=== PATIENT | female | born 1945 | race Caucasian/White ===

== ENCOUNTER 2019-04-12 08:10 | Emergency (ER) | payer MEDICARE, OTHER ==
[2019-04-12 08:22] VITALS: BP 188/80
--- NOTE | 2019-04-12 08:37 | UC ---
Skin Complaint HPI - HPI Summary HPI Summary: Patient is a 73-year-old female presenting with possible tick bite to left upper back that she noticed this morning. States that tick fell when she scratched at it that she believes that is still inside. States the spot has been causing her itching and tenderness over the past few days but she couldn't see it so she left it there. Also notes redness around the bite. Denies fever and chills. Denies drainage and bleeding from the area. Denies nausea or vomiting. 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 - History of Current Complaint Chief Complaint: UCSkin Stated Complaint: TICK BITE Hx Obtained From: Patient Hx Last Menstrual Period: N/A Onset/Duration: Gradual Onset, Lasting Days Pain Intensity: 2 - Allergy/Home Medications Allergies/Adverse Reactions: Allergies Allergy/AdvReac Type Severity Reaction Status Date / Time codeine Allergy resp arrest Verified 04/12/19 08:24 nabumetone [From Relafen] Allergy unk Verified 04/12/19 08:24 PMH/Surg Hx/FS Hx/Imm Hx Cardiovascular History: Hypertension - Surgical History Surgical History: Yes Surgery Procedure, Year, and Place: rotator cuff - Family History Known Family History: Positive: Unknown - Social History Occupation: Retired Lives: Alone Alcohol Use: None Substance Use Type: None Smoking Status (MU): Never Smoked Tobacco Review of Systems All Other Systems Reviewed And Are Negative: No Constitutional: Positive: Negative. Negative: Fever, Chills Skin: Positive: Other - Tick bite of upper left back Respiratory: Positive: Negative Cardiovascular: Positive: Negative Gastrointestinal: Positive: Negative Musculoskeletal: Positive: Negative Neurological: Positive: Negative Physical Exam Triage Information Reviewed: Yes Appearance: Well-Appearing, No Pain Distress, Well-Nourished Vital Signs: Initial Vital Signs Temp 97.9 F 04/12/19 08:19 Pulse 86 04/12/19 08:19 Resp 16 04/12/19 08:19 BP 188/80 04/12/19 08:19 Pulse Ox 96 04/12/19 08:19 Vital Signs Reviewed: Yes Eyes: Positive: Conjunctiva Clear Neck: Positive: Supple Respiratory: Positive: No respiratory distress Neurological: Positive: Alert Psychological: Positive: Age Appropriate Behavior Skin: Positive: Other - Tick bite noted on left upper back with head still intact. Area surrounded by erythema and warmth indicative of cellulitis. Induration noted. No drainage or fluctuance. Course/Dx - Course Course Of Treatment: The patient received 200 mg of prophylactic dose of doxycycline here at urgent care. I then prescribed a course of doxycycline for treatment of her infected tick bite. I educated the patient on cellulitis and instructed to return or go to the ED if anything worsens. I educated patient on tick bites and Lyme disease and instructed her to follow up with PCP if needed. Patient voiced understanding and agreed with the treatment plan. - Diagnoses Provider Diagnosis: Elevated blood pressure reading with diagnosis of hypertension, Infected tick bite of upper back excluding scapular region Discharge ED - Sign-Out/Discharge Documenting (check all that apply): Patient Departure All imaging exams completed and their final reports reviewed: No Studies - Discharge Plan Condition: Stable Disposition: HOME Prescriptions: DOXYcycline CAP(*) [DOXYcycline 100MG CAP(*)] 100 mg PO BID #14 cap Patient Education Materials: Lyme Disease (ED), Tick Bite (ED) Referrals: Mercy Friedman MD [Primary Care Provider] - If Needed Additional Instructions: As discussed, you received the one-time dose of Doxycycline to prevent Lyme Disease here at the urgent care. Take the prescription for doxycycline to treat your skin infection. Tka eht efirst dose of the prescription tonight. It is recommended that you take this with food to avoid stomach upset. You may apply warm compresses to the area 2-3 times daily. Follow up with your PCP if you experience a rash where you were the tick bit you within the next month. Return or go to the emergency room if you experience fever, nausea and vomiting , or increasing redness, warmth, or drainage from the area. - Billing Disposition and Condition Condition: STABLE Disposition: Home - Attestation Statements Provider Attestation: I was available for consult. This patient was seen by the [facility]. The patient was not presented to, seen by, or examined by me. -Quentin
[2019-04-12] MEDS ORDERED: DOXYcycline CAP(*) 100 MG PO ONE (08:50)
== END 2019-04-12 09:03 | disposition home or self-care (01) ==
LOC: UCEAST 08:10
DX: S20.462A Insect bite (nonvenomous) of left back wall of thorax, initial encounter (principal); L08.9 Local infection of the skin and subcutaneous tissue, unspecified; I10 Essential (primary) hypertension; Z88.5 Allergy status to narcotic agent; Z88.6 Allergy status to analgesic agent; W57.XXXA Bitten or stung by nonvenomous insect and other nonvenomous arthropods, initial encounter; Y92.9 Unspecified place or not applicable
CPT/HCPCS: 99212; A9270-GY; G0463

== ENCOUNTER 2023-02-28 20:17 | Inpatient (IN) ==
[2023-02-28] MEDS ORDERED: Ondansetron ODT 4 mg TAB 4 MG TAB PO ONE (20:55)
[2023-02-28] MEDS ORDERED: Morphine 4 MG/ML VIAL (1 ml) IV ONE ×2 (21:39→22:42)
[2023-02-28] MEDS ORDERED: Morphine 4 MG/ML VIAL (1 ml) ONE (22:39)
[2023-02-28] MEDS ORDERED: Pantoprazole 80 mg in NS BAG 80 MG/250 ML BAG IV ONE (23:33)
[2023-02-28] MEDS ORDERED: Pantoprazole VIAL 40 MG VIAL IV ONE (23:33)
[2023-03-01] MEDS ORDERED: Prochlorperazine 5 mg/ml 2 ml VIAL (10 mg) IV ONE (00:05)
[2023-03-01] MEDS ORDERED: Lactated Ringers 1000 ml BAG 1,000 ML IV ONE ×2 (00:55→10:01)
[2023-03-01 00:58] LABS: Hematocrit 35.8 % (35-45); Hemoglobin 11.9 g/dL (11.5-14.3); Mean Corpuscular Hgb Conc 33.3 g/dL (31-36); Mean Corpuscular Volume 84.2 fL (80-97); Mean Platelet Volume 9.1 fL (7.5-11.2); Platelet Count 437 10^3/uL (150-450); Red Blood Count 4.25 10^6/uL (3.63-4.92); Red Cell Distribution Width 15.6 % (12-17); White Blood Count 29.4 10^3/uL (3.8-11.8)
[2023-03-01 01:09] LABS: ALT 13 U/L (7-52); AST 22 U/L (13-39); Albumin 3.6 g/dL (3.2-5.2); Albumin/Globulin Ratio 1.3 (1-3); Alkaline Phosphatase 101 U/L (35-149); Anion Gap 12 mmol/L (2-16); Blood Urea Nitrogen 22 mg/dL (6-24); C Reactive Protein 27.69 mg/L (<8.01); CO2 Carbon Dioxide 22 mmol/L (22-32); Calcium 8.5 mg/dL (8.6-10.3); Chloride 88 mmol/L (101-111); Creatinine, Serum 1.17 mg/dL (0.51-0.95); Globulin 2.7 g/dL (2-4); Glucose 213 mg/dL (70-100); Lipase < 10 U/L (11.0-82.0); Potassium 3.2 mmol/L (3.5-5.0); Sodium 122 mmol/L (135-145); Total Protein 6.3 g/dL (6.4-8.9); eGFR CKD-EPI 47.8 (>60)
[2023-03-01] MEDS ORDERED: Piperacillin/Tazobac 3.375 BAG 3.375 GM/100 ML BAG IV ONE (01:20)
[2023-03-01 01:46] LABS: ABS Lymphocytes 0.3 10^3/uL (1.0-4.8); ABS Monocytes 0.5 10^3/uL (0.0-0.9); ABS Neutrophils 28.5 10^3/uL (1.5-7.6); Lymphocyte % 1.2 %
[2023-03-01] MEDS ORDERED: Vancomycin 1,500 MG in NS 0.9% 250 ml 250 ML IVPB ONE (02:00)
[2023-03-01] MEDS ORDERED: NS 0.9% 1000 ml BAG 1,000 ML IV SCH (02:00)
[2023-03-01] MEDS ORDERED: Lactated Ringers SEPSIS* BAG 1,920 ML IV ONE (05:27)
[2023-03-01 05:32] LABS: Hematocrit 34.7 % (35-45); Hemoglobin 11.6 g/dL (11.5-14.3)
[2023-03-01 07:00] LABS: Urine Appearance Cloudy; Urine Bilirubin 1+ (Negative); Urine Blood Negative (Negative); Urine Color Amber; Urine Glucose Negative (Negative); Urine Ketones Trace (Negative); Urine Nitrite Negative (Negative); Urine Protein 2+(100 mg/dL) (Negative); Urine Specific Gravity 1.031 (1.002-1.030); Urine Urobilinogen Positive (Negative)
[2023-03-01 07:03] LABS: Urine Amorphous Crystals Present (Absent); Urine Bacteria 1+ (Absent); Urine Red Blood Cell Absent (Absent); Urine Squamous Epithelial Cell Present (Absent); Urine White Blood Cell 3+(>20/hpf) (Absent); Urine Yeast Present (Absent)
[2023-03-01] MEDS: KCL 10 MEQ/50 ML IVPREMIX 10 MEQ/50 ML BAG IV SCH ×3 (07:34→10:11)
[2023-03-01] MEDS ORDERED: Albuterol HFA INHALER 8 gm MDI INH PRN (09:18)
[2023-03-01 09:35] LABS: Calcium 7.6 mg/dL (8.6-10.3); Potassium 3.9 mmol/L (3.5-5.0)
[2023-03-01 09:40] LABS: Creatinine, Serum 1.06 mg/dL (0.51-0.95); eGFR CKD-EPI 53.8 (>60)
[2023-03-01] MEDS: Morphine 2 MG/ML SYRINGE IV PRN ×3 (10:11→15:19)
[2023-03-01] MEDS: Prochlorperazine 5 mg/ml 2 ml VIAL (10 mg) IV PRN (10:11)
[2023-03-01] MEDS: Enoxaparin 40 MG/0.4 ML SYR SUBCUT SCH (10:12)
[2023-03-01] MEDS ORDERED: Iodixanol (CONTRAST) 320 MG/ML 100 ML SDV IV ONE (10:21)
[2023-03-01] MEDS ORDERED: cefTRIAXone 1 gm/50 mL D5W 1 GM/50 ML BAG IV SCH (10:30)
[2023-03-01] MEDS ORDERED: Vancomycin per Pharmacy 1 EA NOTE FOLLOW UP SCH (11:00)
[2023-03-01] MEDS ORDERED: Zosyn per Pharmacy NOTE FOLLOW UP SCH (11:00)
[2023-03-01] MEDS ORDERED: ZOSYN 3.375 GM x ONE DOSE over 30 miuntes IV (11:00)
[2023-03-01] MEDS: Cholecalciferol (VIT D3) 1,000 unit TAB PO SCH (12:29)
[2023-03-01] MEDS: Lactulose 30 ml UDC PO SCH ×3 (12:29→20:50)
[2023-03-01] MEDS: Senna TAB 8.6 mg TAB PO SCH (12:30)
[2023-03-01] MEDS ORDERED: Sodium Phosphate ADULT ENEMA 133 ML BTL PR ONE (16:34)
[2023-03-01 17:19] LABS: Body Fluid Source Peritonial Fluid
[2023-03-01 17:20] LABS: Body Fluid Appearance Cloudy; Body Fluid Color Yellow
[2023-03-01] MEDS ORDERED: ZOSYN 3.375 GM Q8H per EXTENDED INFUSION IV SCH (17:30)
[2023-03-01 17:38] LABS: Body Fluid WBC 8906 /mcL
[2023-03-01 17:49] LABS: Body Fluid Mono 7 %; Body Fluid Total Cells Counted 200
[2023-03-01] MEDS: Vancomycin 1000 MG in NS 0.9% 250 ML IVPB SCH (18:20)
[2023-03-02] MEDS: Morphine 2 MG/ML SYRINGE IV PRN ×3 (02:43→15:32)
[2023-03-02] MEDS: Vancomycin 1000 MG in NS 0.9% 250 ML IVPB SCH ×2 (05:51→18:07)
[2023-03-02 06:03] LABS: ABS Lymphocytes 0.3 10^3/uL (1.0-4.8); ABS Monocytes 0.2 10^3/uL (0.0-0.9); ABS Neutrophils 10.4 10^3/uL (1.5-7.6); Eosinophil % 0.1 %; Hematocrit 31.8 % (35-45); Hemoglobin 10.9 g/dL (11.5-14.3); Lymphocyte % 2.8 %; Mean Corpuscular Hemoglobin 28.9 pg (27-33); Mean Corpuscular Hgb Conc 34.4 g/dL (31-36); Mean Corpuscular Volume 84.1 fL (80-97); Mean Platelet Volume 9.5 fL (7.5-11.2); Platelet Count 260 10^3/uL (150-450); Red Blood Count 3.78 10^6/uL (3.63-4.92); Red Cell Distribution Width 16.2 % (12-17); White Blood Count 10.9 10^3/uL (3.8-11.8)
[2023-03-02 06:16] LABS: Calcium 8.3 mg/dL (8.6-10.3); Creatinine, Serum 0.79 mg/dL (0.51-0.95); Potassium 3.5 mmol/L (3.5-5.0); eGFR CKD-EPI 76.5 (>60)
[2023-03-02] MEDS: Cholecalciferol (VIT D3) 1,000 unit TAB PO SCH (08:59)
[2023-03-02] MEDS: Senna TAB 8.6 mg TAB PO SCH (08:59)
[2023-03-02] MEDS: Prochlorperazine 5 mg/ml 2 ml VIAL (10 mg) IV PRN (09:00)
[2023-03-02] MEDS: Pantoprazole VIAL 40 MG VIAL IV SCH ×2 (09:00→22:00)
[2023-03-02] MEDS: ZOSYN 3.375 GM Q8H per EXTENDED INFUSION IV SCH ×3 (09:01→17:00)
[2023-03-02] MEDS: Enoxaparin 40 MG/0.4 ML SYR SUBCUT SCH (10:22)
[2023-03-02] MEDS: Lactulose 30 ml UDC PO SCH ×3 (10:30→21:53)
[2023-03-03] MEDS: ZOSYN 3.375 GM Q8H per EXTENDED INFUSION IV SCH ×3 (00:13→16:58)
[2023-03-03] MEDS: Morphine 2 MG/ML SYRINGE IV PRN ×2 (01:17→09:01)
[2023-03-03] MEDS ORDERED: Vancomycin Trough Check NOTE FOLLOW UP ONE (05:30)
[2023-03-03 05:56] LABS: Hematocrit 30.7 % (35-45); Hemoglobin 10.4 g/dL (11.5-14.3); Mean Corpuscular Hemoglobin 28.5 pg (27-33); Mean Corpuscular Hgb Conc 33.9 g/dL (31-36); Mean Corpuscular Volume 84.1 fL (80-97); Mean Platelet Volume 9.6 fL (7.5-11.2); Platelet Count 287 10^3/uL (150-450); Red Blood Count 3.65 10^6/uL (3.63-4.92); Red Cell Distribution Width 15.7 % (12-17); White Blood Count 7.2 10^3/uL (3.8-11.8)
[2023-03-03 06:15] LABS: Calcium 8.1 mg/dL (8.6-10.3); Creatinine, Serum 0.62 mg/dL (0.51-0.95); Potassium 3.4 mmol/L (3.5-5.0); eGFR CKD-EPI 91.1 (>60)
[2023-03-03] MEDS: Vancomycin 1000 MG in NS 0.9% 250 ML IVPB SCH (07:02)
[2023-03-03 07:42] LABS: ABS Eosinophils 0.1 10^3/uL (0.0-0.5); ABS Lymphocytes 0.3 10^3/uL (1.0-4.8); ABS Monocytes 0.3 10^3/uL (0.0-0.9); ABS Neutrophils 6.5 10^3/uL (1.5-7.6); Lymphocyte % 4.6 %
[2023-03-03] MEDS ORDERED: Ondansetron ODT 4 mg TAB 4 MG TAB SL PRN (08:57)
[2023-03-03] MEDS: Pantoprazole VIAL 40 MG VIAL IV SCH ×2 (09:01→22:33)
[2023-03-03] MEDS: Lactulose 30 ml UDC PO SCH ×3 (09:02→22:33)
[2023-03-03] MEDS: Enoxaparin 40 MG/0.4 ML SYR SUBCUT SCH (09:02)
[2023-03-03] MEDS: Senna TAB 8.6 mg TAB PO SCH (09:03)
[2023-03-03] MEDS: Cholecalciferol (VIT D3) 1,000 unit TAB PO SCH (09:06)
[2023-03-03] MEDS: Morphine ORAL CONCENTRATE 5 MG/0.25 ML ORAL.SYRIN SL SCH ×3 (12:52→23:04)
[2023-03-03] MEDS: Prochlorperazine 5 mg/ml 2 ml VIAL (10 mg) IV PRN (12:52)
[2023-03-03] MEDS: Vancomycin 1,250 MG in NS 0.9% 250 ml 250 ML IVPB SCH (16:58)
[2023-03-03] MEDS: Ondansetron ODT 4 mg TAB 4 MG TAB SL SCH ×2 (16:59→23:08)
[2023-03-04] MEDS: Morphine ORAL CONCENTRATE 5 MG/0.25 ML ORAL.SYRIN SL SCH ×6 (01:30→22:31)
[2023-03-04] MEDS: ZOSYN 3.375 GM Q8H per EXTENDED INFUSION IV SCH ×3 (01:31→19:45)
[2023-03-04] MEDS: Ondansetron ODT 4 mg TAB 4 MG TAB SL SCH ×4 (05:04→22:30)
[2023-03-04 06:04] LABS: Hematocrit 29.8 % (35-45); Hemoglobin 10.1 g/dL (11.5-14.3); Mean Corpuscular Hemoglobin 28.7 pg (27-33); Mean Corpuscular Volume 84.6 fL (80-97); Platelet Count 262 10^3/uL (150-450); Red Blood Count 3.52 10^6/uL (3.63-4.92); Red Cell Distribution Width 15.9 % (12-17); White Blood Count 5.7 10^3/uL (3.8-11.8)
[2023-03-04 06:22] LABS: Calcium 8.1 mg/dL (8.6-10.3); Creatinine, Serum 0.59 mg/dL (0.51-0.95); Potassium 3.6 mmol/L (3.5-5.0); eGFR CKD-EPI 92.2 (>60)
[2023-03-04 06:25] LABS: ABS Eosinophils 0.1 10^3/uL (0.0-0.5); ABS Lymphocytes 0.3 10^3/uL (1.0-4.8); ABS Monocytes 0.8 10^3/uL (0.0-0.9); ABS Neutrophils 4.5 10^3/uL (1.5-7.6); Eosinophil % 1.2 %; Lymphocyte % 5.7 %
[2023-03-04] MEDS: Pantoprazole VIAL 40 MG VIAL IV SCH ×2 (07:40→22:22)
[2023-03-04] MEDS: Vancomycin 1,250 MG in NS 0.9% 250 ml 250 ML IVPB SCH ×2 (08:00→20:03)
[2023-03-04] MEDS: Lactulose 30 ml UDC PO SCH (10:26)
[2023-03-04] MEDS ORDERED: Iohexol 300 (CONTRAST) 10 ML SDV IV ONE (10:51)
[2023-03-04] MEDS: Senna TAB 8.6 mg TAB PO SCH (10:59)
[2023-03-04 11:44] VITALS: BP 122/53
[2023-03-04] MEDS: Morphine ORAL CONCENTRATE 5 MG/0.25 ML ORAL.SYRIN SL PRN (12:53)
[2023-03-04 13:27] LABS: Lactate Dehydrogenase, BF 211 U/L
[2023-03-04] MEDS ORDERED: PAIN RELIEVING RUB (MENTHOL/SALICYLATE) 1 APPLIC TUBE TOPICAL PRN (18:17)
[2023-03-05] MEDS: ZOSYN 3.375 GM Q8H per EXTENDED INFUSION IV SCH ×2 (01:37→11:36)
[2023-03-05] MEDS: Morphine ORAL CONCENTRATE 5 MG/0.25 ML ORAL.SYRIN SL SCH ×3 (03:00→10:26)
[2023-03-05] MEDS ORDERED: Vancomycin Trough Check NOTE FOLLOW UP ONE (05:30)
[2023-03-05 06:17] LABS: Vancomycin Trough 15.1 mcg/mL
[2023-03-05 06:21] LABS: Creatinine, Serum 0.81 mg/dL (0.51-0.95); eGFR CKD-EPI 74.3 (>60)
[2023-03-05] MEDS: Vancomycin 1,250 MG in NS 0.9% 250 ml 250 ML IVPB SCH (06:30)
[2023-03-05] MEDS: Ondansetron ODT 4 mg TAB 4 MG TAB SL SCH ×2 (06:39→11:33)
[2023-03-05] MEDS: Morphine ORAL CONCENTRATE 5 MG/0.25 ML ORAL.SYRIN SL PRN (08:57)
[2023-03-05 09:26] LABS: Albumin, BF 2.5 g/dL; Fluid Type, Albumin PERITONEAL
[2023-03-05 09:27] LABS: Fluid Type, Protein, Total PERITONEAL; Glucose, BF 165 mg/dL; Total Protein, BF 3.9 g/dL
[2023-03-05] MEDS ORDERED: Scopolamine 1 mg/72hr PATCH TRANSDERM SCH (10:00)
[2023-03-05] MEDS: Senna TAB 8.6 mg TAB PO SCH (10:28)
[2023-03-05] MEDS: Pantoprazole VIAL 40 MG VIAL IV SCH (10:29)
== END 2023-03-05 11:17 | disposition hospice, home (50) | DRG 871 ==
LOC: EDHOLD 20:17 → ED 20:17 → SUATTDRO 03-01 09:05 → MEDTELE 03-01 09:59 → SUATTDRO 03-03 09:00
PROVIDERS: ADMIT Internal Medicine; ATTEND Hospitalist